=== PATIENT | male | born 2000 | race African-American/Black ===

== ENCOUNTER 2023-06-09 07:12 | Emergency (ER) | payer OTHER, SELFPAY ==
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
[2023-06-09 07:22] VITALS: BP 149/79; PULSE 109; RESP 16; TEMP 36.1; O2SAT 98; BMI 31.8
[2023-06-09] MEDS: Ibuprofen 600 MG Tablet PO (08:09)
[2023-06-09 08:45] VITALS: BP 130/74; PULSE 81; RESP 16; TEMP 36.5; O2SAT 98
== END 2023-06-09 08:46 | disposition home or self-care (01) ==
PROVIDERS: Emergency Provider Emergency Medicine; Visit Provider Emergency Medicine
DX: S30.0XXA Contusion of lower back and pelvis, initial encounter (principal); V43.52XA Car driver injured in collision with other type car in traffic accident, initial encounter; Y92.410 Unspecified street and highway as the place of occurrence of the external cause; Y99.0 Civilian activity done for income or pay
CPT/HCPCS: 72070; 72100; 99282